=== PATIENT | male | born 1960 | race American Indian/Alaskan Native ===

== ENCOUNTER 2016-05-18 23:22 | Inpatient (IN) | payer OTHER ==
[2016-05-18] MEDS ORDERED: NACL 0.9% 1000 ML 1,000 ML IV ONE ×2 (23:24→23:38)
--- NOTE | 2016-05-18 23:44 | Emergency Department Report ---
HPI - General Chief Complaint: GI Bleed Time Seen by Provider: 05/18/16 23:26 - HPI HPI: Room 2 The patient is a 55-year-old male sent with a chief complaint of GI bleed. The patient states last night he had eaten some spicy food. The patient says this morning he felt burning in his rectum when he had a bowel movement. Patient states she began passing blood in his stool. The patient states he has had frequent BMs with blood in stool throughout the day. EMS was contacted and reported the patient was hypotensive in the 60s systolic prior to administration of IV fluids. Patient currently denies abdominal pain. The patient states he had a similar episode approximately 6 years ago and states physicians initially thought it was secondary to diverticulosis. The patient states his workup has been negative. Location: Gastrointestinal system Duration: see above Quality: Burning Severity: Moderate Modifying factors: [see above] Context: [see above] Mode of transportation: [not driving] ED Past Medical Hx - Past Medical History Previous Medical History?: No Additional medical history: DIVERTICULOSIS - Surgical History Past Surgical History?: No - Family History Family history: no significant - Social History Smoking Status: Never Smoker Substance Use Type: Alcohol (occasional) - Medications Home Medications: Home Medications Medication Instructions Recorded Confirmed Last Taken Type No Known Home Medications [No 05/18/16 05/18/16 Unknown History Reported Home Medications] ED Review of Systems ROS: Stated complaint: GI BLEED Other details as noted in HPI Comment: All other systems reviewed and negative Constitutional: denies: chills, fever Eyes: denies: eye pain, eye discharge, vision change ENT: denies: ear pain, throat pain Respiratory: denies: cough, shortness of breath, wheezing Cardiovascular: denies: chest pain, palpitations Endocrine: no symptoms reported Gastrointestinal: hematochezia. denies: abdominal pain Genitourinary: denies: urgency, dysuria Musculoskeletal: denies: back pain, joint swelling, arthralgia Skin: denies: rash, lesions Neurological: denies: headache, weakness, paresthesias Psychiatric: denies: anxiety, depression Hematological/Lymphatic: denies: easy bleeding, easy bruising Physical Exam - Physical Exam Vital Signs: Vital Signs 05/18/16 05/18/16 23:31 23:34 Temperature 97.3 F L Pulse Rate 96 H Respiratory 22 22 Rate Blood Pressure 127/68 [Right] O2 Sat by Pulse 97 97 Oximetry Physical Exam: GENERAL: The patient is well-developed well-nourished male lying on stretcher appearing to be in mild discomfort. Patient's pants covered in blood HEENT: Normocephalic. Atraumatic. Extraocular motions are intact. Patient has moist mucous membranes. NECK: Supple. Trachea midline CHEST/LUNGS: Clear to auscultation. There is no respiratory distress noted. HEART/CARDIOVASCULAR: Regular. There is no tachycardia. There is no gallop rub or murmur. ABDOMEN: Abdomen is soft, nontender. Patient has normal bowel sounds. There is no abdominal distention. SKIN: There is no rash. There is no edema. There is no diaphoresis. NEURO: The patient is awake and oriented. The patient is cooperative. The patient has normal speech MUSCULOSKELETAL: There is no evidence of acute injury. ED Course Vital Signs 05/18/16 05/18/16 23:31 23:34 Temperature 97.3 F L Pulse Rate 96 H Respiratory 22 22 Rate Blood Pressure 127/68 [Right] O2 Sat by Pulse 97 97 Oximetry - Consultations Consultation #1: 05/19/16 00:46 GI paged 05/19/16 01:[address] Bean-will consult on the patient. Recommends following H &H closely during resuscitation ED Medical Decision Making - Lab Data Result diagrams: 05/18/16 23:33 05/18/16 23:33 Laboratory Tests 05/18/16 05/18/16 05/18/16 23:33 23:33 23:33 WBC 11.0 RBC 3.99 Hgb 9.3 L Hct 30.3 L MCV 76 L MCH 23 L MCHC 31 L RDW 14.9 Plt Count 238 Lymph % (Auto) 30.8 Crane % (Auto) 5.1 Eos % (Auto) 1.0 Baso % (Auto) 0.6 Lymph # 3.4 Crane # 0.6 Eos # 0.1 Baso # 0.1 Seg Neutrophils % 62.5 Seg Neutrophils # 6.9 PT 15.3 H INR 1.22 H APTT 22.3 L Sodium 144 Potassium 3.7 Chloride 104.3 Carbon Dioxide 23 Anion Gap 20 BUN 16 Creatinine 1.1 Estimated GFR > 60 BUN/Creatinine Ratio 14.54 Glucose 208 H Calcium 7.9 L Total Bilirubin < 0.2 AST 23 ALT 26 Alkaline Phosphatase 33 L Total Protein 5.5 L Albumin 3.6 L Albumin/Globulin Ratio 1.9 Lipase 34 - EKG Data -: EKG Interpreted by Me EKG shows normal: sinus rhythm Rate: normal - EKG Data When compared to previous EKG there are: previous EKG unavailable Interpretation: nonspecific ST-T wave didier (T-wave inversions in leads 2, 3, aVF , V4, V5, V6) - Differential Diagnosis diverticulosis, upper GI bleed, Critical care attestation.: If time is entered above; I have spent that time in minutes in the direct care of this critically ill patient, excluding procedure time. ED Disposition Clinical Impression: GI bleed, Orthostatic hypotension Disposition: OP ADMITTED IP TO THIS HOSP Is pt being admited?: Yes Does the pt Need Aspirin: No Condition: Serious Forms: Accompanied Note Time of Disposition: 00:46 (GI and hospitalist paged)
[2016-05-18 23:55] LABS: Basophils % (Auto) 0.6 % (0.0-1.8); Hematocrit 30.3 % (35.5-45.6); Hemoglobin 9.3 gm/dl (11.8-15.2); Mean Corpuscular HGB Conc 31 % (32-34); Mean Corpuscular Volume 76 fl (84-94); Platelet Count 238 K/mm3 (140-440); Red Blood Count 3.99 M/mm3 (3.65-5.03); Red Cell Distribution Width 14.9 % (13.2-15.2)
[2016-05-19 00:03] LABS: Mean Corpuscular Hemoglobin 23 pg (28-32)
[2016-05-19 00:07] LABS: INR 1.22 (0.87-1.13); Partial Thromboplastin Time 22.3 Sec. (24.2-36.6)
[2016-05-19 00:09] LABS: Alanine Aminotransferase 26 units/L (7-56); Albumin 3.6 g/dL (3.9-5); Albumin/Globulin Ratio 1.9 %; Alkaline Phosphatase 33 units/L (35-129); Anion Gap 20 mmol/L; BUN/Creatinine Ratio 14.54; Bilirubin,Total < 0.2 mg/dL (0.1-1.2); Blood Urea Nitrogen 16 mg/dL (9-20); Calcium 7.9 mg/dL (8.4-10.2); Carbon Dioxide 23 mmol/L (22-30); Chloride 104.3 mmol/L (98-107); Glucose 208 mg/dL (75-100); Lipase 34 units/L (13-60); Potassium 3.7 mmol/L (3.6-5.0); Sodium 144 mmol/L (137-145); Total Protein 5.5 g/dL (6.3-8.2)
[2016-05-19] MEDS ORDERED: TYLENOL ONE (01:08)
[2016-05-19] MEDS ORDERED: TYLENOL PO ONE (01:14)
[2016-05-19] MEDS ORDERED: MILK OF MAGNESIA PO PRN (01:54)
[2016-05-19] MEDS ORDERED: DULCOLAX PR PRN (01:54)
[2016-05-19] MEDS ORDERED: MORPHINE IV PRN (01:54)
[2016-05-19] MEDS ORDERED: ZOFRAN IV PRN (01:54)
--- NOTE | 2016-05-19 01:54 | History and Physical Report ---
History of Present Illness Date of examination: 05/19/16 History of present illness: 55-year-old man with a history of diverticular because emergency room with complaints of blood per rectum. Stated he ate some spicy food on Wednesday which he thinks triggered is bloody bowel movements. On Wednesday at a total of 3 bloody bowel movement, 1 in the emergency room. He felt weak, he was hypotensive to which she responded to IV fluids. He had similar episode 7 years ago, his workup was negative Patient denies chest pain, palpitation, shortness of breath, cough, abdominal pain, dysuria, frequency, focal weakness, dysarthria, fever chills, polydipsia polyuria, hot or cold intolerance, easy bruisability, or rash or bleeding from mucosal membrane, rhinorrhea, epistaxis, earache, tinnitus, blurry vision, eye discharge, anxiety, depression. Other review of systems negative PAST SURGICAL HISTORY: None SOCIAL HISTORY: As alcohol, tobacco, drugs FAMILY HISTORY: Hypertension Medications and Allergies Allergies Allergy/AdvReac Type Severity Reaction Status Date / Time No Known Allergies Allergy Unverified 05/18/16 23:24 Home Medications Medication Instructions Recorded Confirmed Last Taken Type No Known Home Medications [No 05/18/16 05/18/16 Unknown History Reported Home Medications] Active Meds: Active Medications Sodium Chloride (Nacl 0.9% 1000 Ml) 1,000 mls @ 250 mls/hr IV ONCE ONE Stop: 05/19/16 03:23 Last Admin: 05/19/16 00:05 Dose: 250 mls/hr Exam - Physical Exam Narrative exam: Gen. appearance: Patient lying in bed, no apparent distress HEENT: Normocephalic, atraumatic, pupils equally round and reactive to light, extraocular movement intact, and no sclericterus,. No JVD or thyromegaly or nodule,neck supple, no carotid bruit ,mucous membranes moist, no exudate or erythema Heart: S1, S2, regular rate and rhythm Lungs: Clear to auscultation bilaterally, breathing comfortable Abdomen: Positive bowel sounds, nontender, nondistended, no organomegaly Extremity: No edema, cyanosis, clubbing Skin: No rash, nodules, warm, dry Neuro: Oriented 3, cranial nerves II-12 intact, speech is fluent, motor and sensory intact - Constitutional Vitals: Temp Pulse Resp BP Pulse Ox 97.3 F L 96 H 20 127/68 97 05/18/16 23:34 05/18/16 23:34 05/19/16 01:18 05/18/16 23:34 05/18/16 23:34 Results - Labs CBC & Chem 7: 05/18/16 23:33 05/18/16 23:33 Labs: Abnormal lab results 05/18/16 05/18/16 05/18/16 Range/Units 23:33 23:33 23:33 Hgb 9.3 L (11.8-15.2) gm/dl Hct 30.3 L (35.5-45.6) % MCV 76 L (84-94) fl MCH 23 L (28-32) pg MCHC 31 L (32-34) % PT 15.3 H (12.2-14.9) Sec. INR 1.22 H (0.87-1.13) APTT 22.3 L (24.2-36.6) Sec. Glucose 208 H (75-100) mg/dL Calcium 7.9 L (8.4-10.2) mg/dL Alkaline Phosphatase 33 L (35-129) units/L Total Protein 5.5 L (6.3-8.2) g/dL Albumin 3.6 L (3.9-5) g/dL Assessment and Plan Diverticular bleed Admits medicine Start IV fluids, check serial hemoglobin, consult GI Start DVT prophylaxis
[2016-05-19] MEDS ORDERED: NACL 0.9% 1000 ML 1,000 ML ONE (03:46)
[2016-05-19] MEDS: NACL 0.9% 1000 ML 1,000 ML IV SCH ×3 (03:53→18:21)
[2016-05-19 05:56] LABS: Hematocrit 25.2 % (35.5-45.6); Hemoglobin 7.8 gm/dl (11.8-15.2)
[2016-05-19 07:59] LABS: Hematocrit 23.3 % (35.5-45.6); Hemoglobin 7.4 gm/dl (11.8-15.2)
[2016-05-19] MEDS ORDERED: NACL 0.9% 500 ML 500 ML IV NR (08:30)
--- NOTE | 2016-05-19 09:13 | Gastroenterology Consultation ---
History of Present Illness - Reason for Consult Consult date: 05/19/16 BRBPR Requesting physician: JOHNNIE MONZON - History of Present Illness citlali Serrano is a 55 y/o male admitted for onset of BRBPR staring yesterday. He notes several episodes of this. He denies abdominal pain, weight loss or N/V. No blood thinning meds or NSAIDS at home. He states he had a similar episode ~ 10 years ago and the etiology was not definitively found, although it was thought to be diverticular. He was seen at that time by Dr. Bean, and underwent EGD and pill cam that was unremarkable. His colonoscopy at that time noted diverticulosis throughout the colon and hemorrhoids. Last seen in 2007, he was also being evaluated at that time for chronic anemia and elevated PSA with referral to hematology. Past History Past Medical History: No medical history, other Past Surgical History: No surgical history Social history: denies: smoking, alcohol abuse Family history: hypertension Medications and Allergies Allergies Allergy/AdvReac Type Severity Reaction Status Date / Time No Known Allergies Allergy Unverified 05/18/16 23:24 Home Medications Medication Instructions Recorded Confirmed Last Taken Type No Known Home Medications [No 05/18/16 05/18/16 Unknown History Reported Home Medications] Active Meds: Active Medications Bisacodyl (Dulcolax) 10 mg DC QDAY PRN PRN Reason: Constipation unrelieved by MOM Sodium Chloride (Nacl 0.9% 1000 Ml) 1,000 mls @ 150 mls/hr IV DIRECT LUKE Last Admin: 05/19/16 09:05 Dose: 150 mls/hr Sodium Chloride (Nacl 0.9% 500 Ml) 500 mls @ 0 mls/hr IV ONCE NR PRN Reason: As Directed Stop: 05/19/16 13:00 Magnesium Hydroxide (Milk Of Magnesia) 30 ml PO Q4H PRN PRN Reason: Constipation Morphine Sulfate (Morphine) 1 mg IV Q4H PRN PRN Reason: Pain, Moderate (4-6) Ondansetron HCl (Zofran) 4 mg IV Q8H PRN PRN Reason: N/V unrelieved by Reglan Exam - Constitutional Vital Signs: Temp Pulse Resp BP Pulse Ox 98.6 F 65 20 109/56 99 05/19/16 08:00 05/19/16 08:00 05/19/16 08:00 05/19/16 08:00 05/19/16 08:00 General appearance: no acute distress - EENT Eyes: EOM intact ENT: hearing intact - Neck Neck: supple - Respiratory Respiratory: bilateral: CTA - Cardiovascular Rhythm: regular Heart Sounds: Present: S1 & S2 Extremities: No edema - Gastrointestinal General gastrointestinal: Present: soft, non-tender, non-distended, normal bowel sounds - Integumentary Integumentary: Present: warm, dry - Neurologic Neurological: alert and oriented x3 - Labs CBC & Chem 7: 05/19/16 07:42 05/18/16 23:33 Lab Results: Laboratory Results - last 24 hr 05/19/16 05/19/16 04:50 07:42 Hgb 7.8 L 7.4 L Hct 25.2 L 23.3 L Assessment and Plan 1. BRBPR -Last colonoscopy 2007. Does not appear to be UGI bleed, BUN WNL -Likely diverticular in nature. IF active bleeding noted today, will need stat RBC scan. Otherwise will prep this PM and plan for Colonoscopy tomorrow. -Prep this PM, clear liquids today. No blood thinning meds. -Trend H/H and keep Hgb >7.
--- NOTE | 2016-05-19 10:06 | Admit Criteria Form ---
Admission Criteria Documentation: GASTROINTESTINAL BLEEDING, LOWER Clinical Indications for Admission to Inpatient Care ( Place 'X' for any and all applicable criteria): Admission is indicated for ANY ONE of the following(1)(2)(3)(4)(5): [ ]I. Active gross bleeding per rectum [X]II. Inpatient admission required rather than observation care (Also use Gastrointestinal Bleeding, Lower: Observation Care as appropriate) because of ANY ONE of the following: [ ]a) Hemodynamic instability that is severe or persistent [X]b) Anemia requiring inpatient admission as indicated by ALL of the following: [ ]1) Presence of significant clinical finding indicated by ANY ONE of the following: [ ]A. Tachycardia for age [X]B. Orthostatic vital sign changes [ ]C. Cognitive impairment [ ]D. Heart failure [ ]E. Chest pain [ ]F. Exertional dyspnea [ ]G. Other findings suggesting inadequate perfusion (eg, peripheral or myocardial ischemia, end organ dysfunction) [ ]2) Initial (eg, emergency department, observation care) treatment with transfusion or volume replacement is judged inappropriate (due to severity of the finding) or has been ineffective [ ]c) Severe pain requiring acute inpatient management [ ]d) Absent bowel sounds with complete ileus [ ]e) Signs of intestinal obstruction or peritonitis [A] [ ]f) High-risk low platelet count [ ]g) Severe electrolyte abnormalities requiring inpatient care [ ]h) Acute renal failure [ ]i) High fever or infection requiring inpatient admission as indicated by ANY ONE of the following(8)(9): [ ]1) Appropriate outpatient or observation care antimicrobial treatment unavailable, not effective, or not feasible Documented bacteremia [ ]2) Documented bacteremia [ ]3) Temperature greater than 104.9 degrees F ( 40.5 degrees C) (oral) [ ]4) Temperature greater than 103.1 degrees F ( 39.5 degrees C) (oral) or less than 96.8 degrees F (36 degrees C) (rectal) that does not respond to all emergency treatment measures [ ]j) IV fluid to replace significant ongoing losses ( greater than 3 L/m2 per day) [ ]k) Immediate inpatient surgery needed [ ]l) Parenteral nutrition regimen that must be implemented on inpatient basis [ ]m) Other condition, treatment or monitoring requiring inpatient admission [ ]III. Unstable comorbid illness (renal, hepatic, pulmonary, hematologic, neurologic, or cardiac) [ ]IV. Failure to control bleeding after colonoscopy [ ]V. Coagulopathy [ ]. Suspected or known ischemic colitis(6) [ ]VII. Previous aortic graft placement or known aortic aneurysm Extended stay beyond goal length of stay may be needed for(3)(4)(28): [ ]a) Emergency surgery [ ]b) Coagulation abnormalities(26) [ ]c) Recurrent or persistent bleeding, continued vital sign instability(27)( 28) [ ]d) Active comorbidities (eg, renal insufficiency, heart failure, pre- existing liver disease) The original [employer] content created by [employer] has been revised. The portions of the content which have been revised are identified through the use of italic text or in bold, and [facility] has neither reviewed nor approved the modified material. All other unmodified content is copyright [facility]. Please see references footnoted in the original [employer] edition 2016 Admission Criteria Met: Yes
--- NOTE | 2016-05-19 13:45 | Event Note ---
Date: 05/19/16 Patient with GI bleeding. Hgb down to 7.4. Transfuse 1 Unit PRBC. He was seen and examined. For colonoscopy tomorrow.
[2016-05-19 16:03] LABS: Hematocrit 24.9 % (35.5-45.6)
[2016-05-19] MEDS ORDERED: GOLYTELY PO ONE (17:00)
[2016-05-20] MEDS: NACL 0.9% 1000 ML 1,000 ML IV SCH ×2 (00:37→06:49)
[2016-05-20 00:55] LABS: Hematocrit 23.5 % (35.5-45.6); Hemoglobin 7.6 gm/dl (11.8-15.2)
[2016-05-20 06:11] LABS: Basophils % (Auto) 0.6 % (0.0-1.8); Eosinophils % (Auto) 1.9 % (0.0-4.3); Hematocrit 23.6 % (35.5-45.6); Hemoglobin 7.7 gm/dl (11.8-15.2); Mean Corpuscular HGB Conc 33 % (32-34); Mean Corpuscular Volume 76 fl (84-94); Platelet Count 167 K/mm3 (140-440); Red Blood Count 3.12 M/mm3 (3.65-5.03)
[2016-05-20 06:12] LABS: Anion Gap 14 mmol/L; Blood Urea Nitrogen 7 mg/dL (9-20); Calcium 7.3 mg/dL (8.4-10.2); Carbon Dioxide 25 mmol/L (22-30); Chloride 109.6 mmol/L (98-107); Glucose 104 mg/dL (75-100); Potassium 3.7 mmol/L (3.6-5.0); Sodium 145 mmol/L (137-145)
[2016-05-20 06:14] LABS: Mean Corpuscular Hemoglobin 25 pg (28-32)
[2016-05-20] MEDS ORDERED: NACL 0.9% 1000 ML 1,000 ML IV SCH (08:00)
[2016-05-20] MEDS ORDERED: WATER FOR IRRIG STERILE IR ONE ×2 (08:13→08:26)
[2016-05-20] MEDS ORDERED: DIPRIVAN 10 MG/ML IV ONE (08:29)
--- NOTE | 2016-05-20 08:29 | Anesthesia Day of Surgery ---
Anesthesia Day of Surgery - Day of Surgery Patient Examined: Yes Patient H&P Reviewed: Yes Patient is NPO: Yes
--- NOTE | 2016-05-20 08:29 | Anesthesia Consultation ---
Anesthesia Consult and Med Hx Date of service: 05/20/16 - Airway Anesthetic Teeth Evaluation: Good ROM Head & Neck: Adequate Mental/Hyoid Distance: Adequate Mallampati Class: Class III Intubation Access Assessment: Possibly Difficult - Pre-Operative Health Status ASA Pre-Surgery Classification: ASA2 - Pulmonary Hx Asthma: No COPD: No Hx Pneumonia: No - Gastrointestinal Hx Ulcer: Yes (gi bleed) - Endocrine Hx End Stage Renal Disease: No - Other Systems Hx Cancer: No
[2016-05-20] MEDS ORDERED: XYLOCAINE MPF 2% ONE (08:33)
--- NOTE | 2016-05-20 08:56 | Post Operative Note ---
Pre-op diagnosis: Hematochezia Post-op diagnosis: other (Diverticulosis, no evidence of bleeding) Findings: Diverticulosis, R greater than L colon. No evidence of old or fresh blood. Procedure: Colonoscopy Anesthesia: MAC Surgeon: CHAD GUZMAN Estimated blood loss: none Pathology: none Condition: stable (Okay to advance diet and discharge if stable, with outpatient follow up.)
--- NOTE | 2016-05-20 09:36 | Post Anesthesia Evaluation ---
- Post Anesthesia Evaluation Patient Participated: Yes Airway Patent: Yes Stable Respiratory Function: Yes Nausea/Vomiting: No Temp > 96.8F: Yes Pain Manageable: Yes Adequeate Hydration: Yes Anesthesia Complications: No Block Receding Appropriately: Not Applicable Patient on Ventilator: No
[2016-05-20 10:09] VITALS: BP 128/77
--- NOTE | 2016-05-20 10:27 | Discharge Summary ---
Providers - Providers Date of Admission: 05/19/16 01:54 Date of discharge: 05/20/16 Attending physician: OMAR NATH Primary care physician: LAURIE AYALA MD Hospitalization Condition: Fair Disposition: DISCHARGED TO HOME OR SELFCARE - Discharge Diagnoses (1) Acute lower GI hemorrhage Status: Acute (2) Diverticular hemorrhage Status: Acute Core Measure Documentation - Palliative Care Palliative Care/ Comfort Measures: Not Applicable Exam - Constitutional Vitals: Temp Pulse Resp BP Pulse Ox 97.6 F 73 17 128/77 99 05/20/16 09:50 05/20/16 10:05 05/20/16 10:05 05/20/16 10:05 05/20/16 10:05 Plan Activity: no restrictions Diet: regular Additional Instructions: 1.Follow up with primary care physician or [facility] in 1 week. 2.Follow-up with Dr. Arevalo in 2-4 weeks Follow up with: PRIMARY CAREMD [Primary Care Provider] - 3-5 Days Forms: Accompanied Note Prescriptions: Docusate Sodium [Colace] 100 mg PO BID #60 capsule Ferrous Sulfate [Feosol 325 MG tab] 325 mg PO BID #60 tablet
--- NOTE | 2016-05-20 10:31 | Operative Report ---
PROCEDURE: Colonoscopy. PREOPERATIVE DIAGNOSIS: Hematochezia. POSTOPERATIVE DIAGNOSIS: Diverticulosis. SEDATION: MAC by Anesthesia. HISTORY: The patient is a 55-year-old man who presented with several episodes of hematochezia and hemoglobin in the 7s. He has stopped bleeding overnight and his colon prep was clear, presents for diagnostic and therapeutic evaluation. DESCRIPTION OF PROCEDURE: Procedure, indications, risks, and benefits were explained and consent was obtained. The patient was placed in left lateral decubitus position and sedated. [email or web address] video colonoscope was passed through the rectum after digital examination and passed with minimal difficulty to the cecum, which was identified by the ileocecal valve and the appendiceal orifice. Scope was then gradually withdrawn with close inspection of the mucosa. FINDINGS: 1. Diverticulosis noted throughout the colon. It was worse in the right colon than the left and was moderately severe. 2. Remainder of visualized colonic mucosa was normal appearing with no evidence of mass lesions, vascular lesions, or inflammation. There was bilious effluent noted in the colon lumen with no evidence of old or fresh blood and no stigmata of bleeding. The patient tolerated the procedure well without immediate complication. IMPRESSION: 1. Diverticulosis, likely source of bleeding. 2. Otherwise, normal colonoscopy. PLAN: 1. Advance diet and discharge if does well. 2. Follow up as outpatient. [facility]# [id number] HRC/NTS
[2016-05-20 10:55] LABS: Hematocrit 25.5 % (35.5-45.6)
[2016-05-20 11:05] LABS: INR 1.14 (0.87-1.13)
--- NOTE | 2016-05-20 12:41 | Query-Anemia ---
Ernst Lai Marc Date: 05/20/16 Application Support Technician/CDS: Paco Pamelaadelina Phone#:[phone] Exercise your independent professional judgment when responding to this query. Questions asked do not imply a particular answer is desired or expected. We greatly appreciate your clarification on this issue. Clinical Documentation States: 55 year old male was admitted on 05/19/16. The discharge summary states " Acute lower GI hemorrage , Diverticular hemorrhage" Operative report states " Procedure: Colonoscopy, Posoperative diagnosis: Diverticulosis" Clinical Findings Show: 05/18/2016 05/19/2016 Hgb: 9.3 7.4 Hct: 30 23.3 Etiology: [ ] Precipitous Drop in Hemoglobin [ ] Precipitous Drop in Hematocrit [x ] Anemia due to acute blood loss [ ] Anemia due to chronic blood loss [ ] Anemia secondary to ESRD [ ] Anemia secondary to neoplastic disease [ ] Iron deficiency anemia due to malabsorption [ ] GI Bleed from: [ ] Anemia of chronic disease ,Other: [ ] Other: [ ] Unable to determine [ ] Comment/Explanation: Present on Admission: [ x] Yes (Y) [ ] Clinically undeterminable (W) [ ] No (N) Please also document response in your Progress Notes and/or Discharge Summary and indicate if the condition was present on admission. RONAK
[2016-05-20] MEDS ORDERED: NACL 0.9% 1000 ML 1,000 ML ONE (12:51)
== END 2016-05-20 15:59 | disposition home or self-care (01) | DRG 378 ==
LOC: ED 23:22 → 4A 05-19 01:54
PROVIDERS: ADMIT Internal Medicine; ATTEND Internal Medicine
PROC: 30233N1 Transfusion of Nonautologous Red Blood Cells into Peripheral Vein, Percutaneous Approach (ICD-10-PCS; 2016-05-19)
PROC: 0DJD8ZZ Inspection of Lower Intestinal Tract, Via Natural or Artificial Opening Endoscopic (ICD-10-PCS; principal; 2016-05-20)
DX: K57.91 Diverticulosis of intestine, part unspecified, without perforation or abscess with bleeding (principal); D62 Acute posthemorrhagic anemia; I95.1 Orthostatic hypotension; Z82.49 Family history of ischemic heart disease and other diseases of the circulatory system
CPT/HCPCS: 36415; 80048; 80053; 83690; 85014; 85018; 85025; 85610; 85730; 86850; 86900; 86901; 86920; 93005; 93010; 96360; J2704; J7030; P9016

== ENCOUNTER 2018-09-08 05:29 | Emergency (ER) | payer OTHER ==
[2018-09-08 05:56] LABS: Basophils % (Auto) 0.7 % (0.0-1.8); Eosinophils # (Auto) 0.1 K/mm3 (0.0-0.4); Eosinophils % (Auto) 1.6 % (0.0-4.3); Hematocrit 34.4 % (35.5-45.6); Lymphocytes # (Auto) 2.1 K/mm3 (1.2-5.4); Lymphocytes % (Auto) 39.2 % (13.4-35.0); Mean Corpuscular HGB Conc 32 % (32-34); Mean Corpuscular Volume 75 fl (84-94); Monocytes # (Auto) 0.4 K/mm3 (0.0-0.8); Monocytes % (Auto) 7.4 % (0.0-7.3); Platelet Count 279 K/mm3 (140-440); Red Cell Distribution Width 14.4 % (13.2-15.2)
[2018-09-08 06:03] LABS: INR 1.13 (0.87-1.13)
--- NOTE | 2018-09-08 06:06 | XRay Report ---
PROCEDURE: XR CHEST 1V AP TECHNIQUE: Chest radiograph single view. HISTORY: Chest Pain COMPARISONS: None . FINDINGS: Heart: Normal. Mediastinum/Vessels: Normal. Lungs/Pleural space: Normal. Bony thorax: No acute osseous abnormality. Life support devices: None. IMPRESSION: No acute cardiopulmonary abnormality. This document is electronically signed by Bam Priest MD., September 08 2018 06:04:43 AM ET
[2018-09-08 06:13] LABS: Alanine Aminotransferase 21 units/L (7-56); Albumin 3.7 g/dL (3.9-5); BUN/Creatinine Ratio 18; Blood Urea Nitrogen 16 mg/dL (9-20); Calcium 8.1 mg/dL (8.4-10.2); Hemolysis Index 5
--- NOTE | 2018-09-08 06:14 | Emergency Department Report ---
Blank Doc - Documentation Documentation: I initially saw this patient upon his arrival to the emergency department. The patient had a syncopal episode in his bathroom and had a large amount of rectal bleeding. The EKG showed some concerning anterior ST elevations but no reciprocal depressions. I spoke with the special education case manager broadcast operations engineer, Dr. Duenas, who took a look at the EKG and did not feel that it was an ST elevation PA or required laboratory machinist activation. Especially since the patient presented with the severe rectal bleeding. He recommends avoiding any aspirin or NSAIDs or heparin at this time. The patient may need a strong statin medication and further workup, possibly including gastroenterology. Orders have been placed and we will continue to monitor this patient.
--- NOTE | 2018-09-08 06:17 | Emergency Department Report ---
ED General Adult HPI - General Chief complaint: GI Bleed Stated complaint: syncope Time Seen by Provider: 09/08/18 06:10 Source: patient, EMS Mode of arrival: Stretcher Limitations: No Limitations - History of Present Illness Initial comments: Patient is a 58-year-old male that presents to emergency room with bright red blood per rectum and a syncopal episode. Patient states about 4 AM he went to the restroom and had a very large volume explosive diarrhea filled with blood. Patient states that blood exploded all over his bathroom and floor of his bathroom. Patient denies abdominal pain. Patient denies chest pain. Patient denies blurry vision. Patient denies nausea vomiting. Patient states that the large volume GI bleed was one time. Patient states after he saw the blood he passed out. Patient states he became short of breath while sitting on the toilet and then had a syncopal episode. Patient states he is feeling back to normal. Patient denies hitting his head. Patient denies trauma. -: Sudden Severity scale (0 -10): 0 Consistency: constant Improves with: none Worsens with: none Associated Symptoms: syncope. denies: confusion, chest pain, cough, diaphoresis, fever/chills, headaches, loss of appetite, malaise, nausea/vomiting, rash, seizure, shortness of breath, weakness Treatments Prior to Arrival: none - Related Data Previous Rx's Medication Instructions Recorded Last Taken Type Docusate Sodium [Colace] 100 mg PO BID #60 capsule 05/20/16 Unknown Rx Ferrous Sulfate [Feosol 325 MG tab] 325 mg PO BID #60 tablet 05/20/16 Unknown Rx Allergies Allergy/AdvReac Type Severity Reaction Status Date / Time No Known Allergies Allergy Unverified 05/18/16 23:24 ED Review of Systems ROS: Stated complaint: STEMI Other details as noted in HPI Constitutional: denies: chills, fever Eyes: denies: eye pain, eye discharge, vision change ENT: denies: ear pain, throat pain Respiratory: denies: cough, shortness of breath, wheezing Cardiovascular: denies: chest pain, palpitations Endocrine: no symptoms reported Gastrointestinal: diarrhea, hematochezia. denies: abdominal pain, nausea Genitourinary: denies: urgency, dysuria Musculoskeletal: denies: back pain, joint swelling, arthralgia Skin: denies: rash, lesions Neurological: denies: headache, weakness, paresthesias Psychiatric: denies: anxiety, depression Hematological/Lymphatic: denies: easy bleeding, easy bruising ED Past Medical Hx - Past Medical History Previous Medical History?: Yes Hx Congestive Heart Failure: No Hx Diabetes: No Hx Asthma: No Hx COPD: No Additional medical history: DIVERTICULOSIS - Surgical History Past Surgical History?: No - Family History Family history: no significant - Social History Smoking Status: Never Smoker Substance Use Type: None - Medications Home Medications: Home Medications Medication Instructions Recorded Confirmed Last Taken Type Docusate Sodium [Colace] 100 mg PO BID #60 capsule 05/20/16 Unknown Rx Ferrous Sulfate [Feosol 325 MG tab] 325 mg PO BID #60 tablet 05/20/16 Unknown Rx ED Physical Exam - General Limitations: No Limitations General appearance: alert, in no apparent distress - Head Head exam: Present: atraumatic, normocephalic - Eye Eye exam: Present: normal appearance - ENT ENT exam: Present: mucous membranes moist - Neck Neck exam: Present: normal inspection - Respiratory Respiratory exam: Present: normal lung sounds bilaterally. Absent: respiratory distress - Cardiovascular Cardiovascular Exam: Present: regular rate, normal rhythm. Absent: systolic mur mur, diastolic murmur, rubs, gallop - GI/Abdominal GI/Abdominal exam: Present: soft, normal bowel sounds. Absent: distended, tenderness, guarding - Rectal Rectal exam: Present: deferred - Extremities Exam Extremities exam: Present: normal inspection - Back Exam Back exam: Present: normal inspection - Neurological Exam Neurological exam: Present: alert, oriented X3 - Psychiatric Psychiatric exam: Present: normal affect, normal mood - Skin Skin exam: Present: warm, dry, intact, normal color. Absent: rash ED Course Vital Signs 09/08/18 09/08/18 09/08/18 05:32 05:37 05:45 Temperature 98.3 F Pulse Rate 79 83 85 Respiratory 12 17 12 Rate Blood Pressure 114/73 114/65 Blood Pressure [Right] O2 Sat by Pulse 99 99 99 Oximetry 09/08/18 09/08/18 09/08/18 05:47 06:00 06:15 Temperature Pulse Rate 82 87 Respiratory 17 14 10 L Rate Blood Pressure 114/64 104/58 Blood Pressure [Right] O2 Sat by Pulse 99 97 97 Oximetry 06/09/08/18 09/08/18 06:30 06:45 07:00 Temperature Pulse Rate 82 87 81 Respiratory 11 L 16 15 Rate Blood Pressure 103/58 103/55 Blood Pressure 97/55 [Right] O2 Sat by Pulse 99 98 96 Oximetry 09/08/18 09/08/18 09/08/18 07:15 07:30 07:45 Temperature Pulse Rate 75 78 75 Respiratory 16 14 13 Rate Blood Pressure 104/61 104/61 98/55 Blood Pressure [Right] O2 Sat by Pulse 98 98 98 Oximetry 09/08/18 09/08/18 09/08/18 08:00 08:15 08:30 Temperature Pulse Rate 82 80 78 Respiratory 11 L 10 L 14 Rate Blood Pressure 119/64 119/64 104/71 Blood Pressure [Right] O2 Sat by Pulse 98 98 99 Oximetry 09/08/18 09/08/18 09/08/18 08:45 09:00 09:15 Temperature Pulse Rate 71 74 72 Respiratory 13 12 13 Rate Blood Pressure 104/71 115/66 115/66 Blood Pressure [Right] O2 Sat by Pulse 98 98 Oximetry - Reevaluation(s) Reevaluation #1: Discussed all results with patient. Patient will be transferred to [facility]. patient agrees to plan of care. 09/08/18 08:43 - Consultations Consultation #1: Patient is a [facility] patient. [facility] physician distillation operator paged 09/08/18 07:02 Discussed case with [facility] physician and [facility] physician, Dr Ames is going to call their hospitalist for a direct admit into the hospital. 09/08/18 07:[address] Ames, Dr negrete at [facility] has accepted the pt to be transfered. 09/08/18 08:20 ED Medical Decision Making - Lab Data Result diagrams: 09/08/18 05:39 09/08/18 05:39 - EKG Data -: EKG Interpreted by Me EKG shows normal: sinus rhythm, axis, intervals, QRS complexes Rate: normal - EKG Data The overnight physician, Dr. Daigle discussed EKG with interventional cardiology and interventional cardiology states that the ST elevation is not secondary to a STEMI. 09/08/18 07:01 - Radiology Data Radiology results: report reviewed, image reviewed interpreted by me: No acute findings on chest x-ray. PROCEDURE: XR CHEST 1V AP TECHNIQUE: Chest radiograph single view. HISTORY: Chest Pain COMPARISONS: None . FINDINGS: Heart: Normal. Mediastinum/Vessels: Normal. Lungs/Pleural space: Normal. Bony thorax: No acute osseous abnormality. Life support devices: None. IMPRESSION: No acute cardiopulmonary abnormality. - Medical Decision Making Patient is a 58-year-old male presents emergency room with large-volume bright red blood per rectum. Patient had a syncopal episode after seeing the blood. Patient will be transferred to [facility]. Except physician is Dr. Negrete. I discussed case with Dr. Ames with [facility]. The [facility] physician has arranged all the transfer to [facility]. Patient's labs essentially unremarkable except for anemia. The patient's EKG found to have [address] most like secondary to report cardiology was counseled to further EKG. Cardiology to determine EKG is not a STEMI. - Differential Diagnosis GI bleed. Syncope. Critical Care Time: Yes Critical care attestation.: If time is entered above; I have spent that time in minutes in the direct care of this critically ill patient, excluding procedure time. Critical Care Time: 35 minutes ED Disposition Clinical Impression: Anemia due to acute blood loss, Hyperglycemia, BRBPR (bright red blood per rectum) GI bleed Qualifiers: GI bleed type/associated pathology: unspecified gastrointestinal hemorrhage type Qualified Code(s): K92.2 - Gastrointestinal hemorrhage, unspecified Syncopal episodes Qualifiers: Syncope type: unspecified Qualified Code(s): R55 - Syncope and collapse Disposition: DC/TX-70 ANOTHER TYPE HLTHCARE Is pt being admited?: No Does the pt Need Aspirin: No Condition: Critical Forms: Accompanied Note Time of Disposition: 08:24
[2018-09-08 09:27] VITALS: BP 115/66
== END 2018-09-08 09:27 | disposition other institution (70) ==
LOC: ED 05:29
DX: K62.5 Hemorrhage of anus and rectum (principal); D62 Acute posthemorrhagic anemia; R73.9 Hyperglycemia, unspecified; R55 Syncope and collapse
CPT/HCPCS: 36415; 71045; 80053; 84484; 85025; 85610; 85730; 86850; 86900; 86901; 93005; 93010